=== PATIENT | female | born 1950 | race Caucasian/White ===

== ENCOUNTER → 2022-08-03 | Outpatient (REF) | payer MEDICARE ==
[2022-08-03 19:30] LABS: APPEARANCE, URINE MANUAL CLEAR (CLEAR); COLOR, URINE MANUAL YELLOW (YELLOW); GLUCOSE, URINE (UA) MANUAL 2+(250 MG/DL) mg/dL (NEGATIVE); PH,URINE MAN 5.5 UNITS (5.0 - 7.0); PROTEIN, URINE MANUAL NEGATIVE (NEGATIVE); SPECIFIC GRAVITY,URINE MANUAL 1.025 (1.002-1.035)
[2022-08-03 19:31] LABS: BILIRUBIN, URINE MANUAL NEGATIVE (NEGATIVE); BLOOD URINE MANUAL NEGATIVE (NEGATIVE); KETONE, URINE MANUAL NEGATIVE (NEGATIVE); NITRITE, URINE MANUAL NEGATIVE (NEGATIVE); UROBILINOGEN, URINE MANUAL NORMAL (NORMAL)
[2022-08-03 19:52] LABS: LEUKOCYTE ESTERASE, URINE MAN TRACE (NEGATIVE)
[2022-08-03 19:54] LABS: BACTERIA, URINE SMALL AMOUNT; HYALINE CAST, URINE NONE SEEN /lpf (0-1); MUCUS, URINE MOD AMOUNT (NEGATIVE); RBC, URINE 0-1 /hpf (0-3); SQUAMOUS EPITHELIAL CELL URINE LARGE AMOUNT /hpf (SMALL AMT); TRANSITIONAL EPI CELLS, URINE SMALL AMOUNT /hpf
== END ==
LOC: M SMT 17:02
PROVIDERS: ATTEND Nurse Practitioner Women's Health
DX: R32 Unspecified urinary incontinence (principal)

== ENCOUNTER → 2022-08-23 | Outpatient (REF) | payer MEDICARE ==
[2022-08-23 17:11] LABS: APPEARANCE, URINE MANUAL CLEAR (CLEAR); COLOR, URINE MANUAL YELLOW (YELLOW)
[2022-08-23 17:13] LABS: BILIRUBIN, URINE MANUAL NEGATIVE (NEGATIVE); BLOOD URINE MANUAL NEGATIVE (NEGATIVE); GLUCOSE, URINE (UA) MANUAL 4+(1000 MG/DL) mg/dL (NEGATIVE); KETONE, URINE MANUAL NEGATIVE (NEGATIVE); LEUKOCYTE ESTERASE, URINE MAN NEGATIVE (NEGATIVE); NITRITE, URINE MANUAL NEGATIVE (NEGATIVE); PH,URINE MAN 5.5 UNITS (5.0 - 7.0); PROTEIN, URINE MANUAL NEGATIVE (NEGATIVE); UROBILINOGEN, URINE MANUAL NORMAL (NORMAL)
== END ==
LOC: M SMT 16:49
PROVIDERS: ATTEND Urology
DX: R32 Unspecified urinary incontinence (principal)

== ENCOUNTER 2022-12-12 08:07 | Inpatient (IN) | payer MEDICARE, MEDICAID ==
[~2022-12-12] VITALS: Ht 152.4 cm; Wt 81.9 kg
[2022-12-12] MEDS ORDERED: LIDOCAINE 2% 5ML JELLY UROJET TOP ONE (08:50)
[2022-12-12 09:53] LABS: BASO # 0.1 10^3/uL (0.0-0.2); BASO % 0.6 % (0.0-1.0); EOS # 0.1 10^3/uL (0.0-0.5); EOS % 1.2 % (0.0-3.0); HEMATOCRIT 45.3 % (36.0-47.0); HEMOGLOBIN 14.9 g/dl (12.0-15.5); LYMPH # 2.5 10^3/uL (1.5-5.0); LYMPH % 23.4 % (24.0-44.0); MEAN CORPUSCULAR HEMOGLOBIN 28.1 pg (27.0-33.0); MEAN CORPUSCULAR HGB CONC 32.9 g/dl (32.0-36.5); MEAN CORPUSCULAR VOLUME 85.5 fl (80.0-96.0); MONO # 0.6 10^3/uL (0.0-0.8); MONO % 5.5 % (2.0-8.0); NEUTROPHILS # 7.5 10^3/uL (1.5-8.5); NEUTROPHILS % 68.9 % (36.0-66.0); PLATELET COUNT, AUTOMATED 212 10^3/uL (150-450); WHITE BLOOD COUNT 10.9 10^3/uL (4.0-10.0)
[2022-12-12 10:06] LABS: INR 0.92; PROTHROMBIN TIME 12.6 SECONDS (12.5-14.5)
[2022-12-12 10:07] LABS: PARTIAL THROMBOPLASTIN TIME 28.7 SECONDS (24.8-34.2)
[2022-12-12 10:25] LABS: RSV AMPLIFICATION NEGATIVE (NEGATIVE)
[2022-12-12 10:30] LABS: LIPASE 22 U/L (12-53)
[2022-12-12 10:32] LABS: ALBUMIN 3.6 G/DL (3.2-5.2); ALKALINE PHOSPHATASE 81 U/L (46-116); ALT/SGPT 23 U/L (7.0-40); AST/SGOT 21 U/L (<34); BILIRUBIN,DIRECT 0.2 MG/DL (<0.4); BILIRUBIN,TOTAL 0.5 MG/DL (0.3-1.2); BLOOD UREA NITROGEN 20 MG/DL (9-23); CALCIUM LEVEL 8.3 MG/DL (8.3-10.6); CARBON DIOXIDE LEVEL 27 MMOL/L (20-31); CHLORIDE LEVEL 105 MMOL/L (98-107); CK-MB VALUE MASS < 1.0 NG/ML (<3.6); CREATININE FOR GFR 0.67 MG/DL (0.55-1.30); GLOMERULAR FILTRATION RATE > 60.0 (>39); GLUCOSE, FASTING 266 MG/DL (74-106); POTASSIUM SERUM 4.3 MMOL/L (3.5-5.1); SODIUM LEVEL 142 MMOL/L (136-145); TOTAL PROTEIN 6.5 G/DL (5.7-8.2)
[2022-12-12 10:33] LABS: THYROID STIMULATING HORMONE 1.095 uIU/ML (0.55-4.78)
[2022-12-12 10:39] LABS: CPK CREATINE PHOSPHOKINASE 50 U/L (34-145)
[2022-12-12] MEDS ORDERED: levETIRAcetam INJection 1,000 MG in D5W 100 ML IV ONE (11:05)
[2022-12-12 11:26] LABS: CK-MB VALUE MASS < 1.0 NG/ML (<3.6)
[2022-12-12 11:33] LABS: CPK CREATINE PHOSPHOKINASE 51 U/L (34-145); MB/CK RELATIVE INDEX 1.96 (< OR =4)
[2022-12-12] MEDS ORDERED: ASPI81TA26 PO (11:40)
[2022-12-12] MEDS ORDERED: CARB25TA9 PO (11:40)
[2022-12-12] MEDS ORDERED: SIMV20TA22 PO (11:40)
[2022-12-12] MEDS ORDERED: LEXA1TAB2 PO (11:40)
[2022-12-12] MEDS ORDERED: LISI5TAB11 PO (11:40)
[2022-12-12] MEDS ORDERED: XALA0.007 OU (11:40)
[2022-12-12] MEDS ORDERED: PANT40TA29 PO (11:40)
[2022-12-12] MEDS ORDERED: TIMO0.2529 OU (11:40)
[2022-12-12] MEDS ORDERED: FARX1TAB3 PO (11:40)
[2022-12-12] MEDS ORDERED: FAMO40TA3 PO (11:40)
[2022-12-12] MEDS ORDERED: GABA-1171 PO (11:40)
[2022-12-12] MEDS ORDERED: BASA100I SC (11:40)
[2022-12-12] MEDS ORDERED: ERGO500029 PO (11:40)
[2022-12-12] MEDS ORDERED: HOME MED LIST COMPLETE! XX SCH (11:45)
[2022-12-12] MEDS ORDERED: GLUCOSE 4GM CHEW TABLET PO PRN (11:55)
[2022-12-12] MEDS ORDERED: FAMOTIDINE 20 MG TAB PO PRN (11:55)
[2022-12-12] MEDS ORDERED: DEXTROSE 50% 50ML SYRINGE IV PRN (11:55)
[2022-12-12] MEDS ORDERED: GLUCAGON INJ 1MG VIAL SC PRN (11:55)
[2022-12-12] MEDS ORDERED: KETOROLAC 30 MG/ML 1ML VIAL IV ONE (12:00)
[2022-12-12] MEDS: INSULIN LISPRO (NovoLOG) PER UNIT SC SCH ×3 (12:55→21:00)
[2022-12-12 13:45] VITALS: BP 121/61
[2022-12-12] MEDS: lisinopriL 5 MG TAB PO SCH (14:17)
[2022-12-12] MEDS: ASPIRIN 81MG ENTERIC TABLET PO SCH (14:17)
[2022-12-12] MEDS: ESCITALOPRAM OXALATE 10 MG TAB (LEXAPRO) PO SCH (14:17)
[2022-12-12] MEDS: PANTOPRAZOLE 40MG TAB (PROTONIX) PO SCH ×2 (14:18→22:06)
[2022-12-12 15:13] VITALS: BP_SYST 118; BP_SYST 121; BP_SYST 138; BP_DIAS 61; BP_DIAS 80
[2022-12-12] MEDS: GABAPENTIN 100 MG CAP PO SCH ×2 (16:10→22:03)
[2022-12-12 22:00] VITALS: BP 107/62
[2022-12-12] MEDS: levETIRAcetam 250MG TABLET (KEPPRA) PO SCH (22:03)
[2022-12-12] MEDS: LATANOPROST 0.005% OPHTH SOLN 2.5 ML OU SCH (22:03)
[2022-12-12] MEDS: SIMVASTATIN 20 MG TAB PO SCH (22:03)
[2022-12-12] MEDS: SINEMET 25-100 MG TAB PO SCH (22:04)
[2022-12-13 05:44] VITALS: BP_SYST 120; BP_SYST 122; BP_SYST 128; BP_DIAS 68; BP_DIAS 74; BP_DIAS 77
[2022-12-13 06:00] VITALS: BP 112/56
[2022-12-13 08:07] LABS: HEMATOCRIT 42.3 % (36.0-47.0); HEMOGLOBIN 13.7 g/dl (12.0-15.5); MEAN CORPUSCULAR HEMOGLOBIN 28.4 pg (27.0-33.0); MEAN CORPUSCULAR HGB CONC 32.4 g/dl (32.0-36.5); MEAN CORPUSCULAR VOLUME 87.8 fl (80.0-96.0); PLATELET COUNT, AUTOMATED 182 10^3/uL (150-450); RED BLOOD COUNT 4.82 10^6/uL (4.00-5.40); WHITE BLOOD COUNT 9.1 10^3/uL (4.0-10.0)
[2022-12-13 08:30] LABS: ALBUMIN 3.2 G/DL (3.2-5.2); ALKALINE PHOSPHATASE 67 U/L (46-116); ALT/SGPT 12 U/L (7.0-40); AST/SGOT 28 U/L (<34); BILIRUBIN,TOTAL 0.5 MG/DL (0.3-1.2); BLOOD UREA NITROGEN 32 MG/DL (9-23); CALCIUM LEVEL 8.8 MG/DL (8.3-10.6); CARBON DIOXIDE LEVEL 28 MMOL/L (20-31); CHLORIDE LEVEL 108 MMOL/L (98-107); CREATININE FOR GFR 0.81 MG/DL (0.55-1.30); GLOMERULAR FILTRATION RATE > 60.0 (>39); GLUCOSE, FASTING 213 MG/DL (74-106); POTASSIUM SERUM 4.4 MMOL/L (3.5-5.1); SODIUM LEVEL 142 MMOL/L (136-145); TOTAL PROTEIN 5.4 G/DL (5.7-8.2)
[2022-12-13] MEDS: ESCITALOPRAM OXALATE 10 MG TAB (LEXAPRO) PO SCH (09:27)
[2022-12-13] MEDS: LEVEMIR (INSULIN DETEMIR) 1 UNITS/0.01ML SC SCH (09:28)
[2022-12-13] MEDS: INSULIN LISPRO (NovoLOG) PER UNIT SC SCH ×4 (09:29→20:22)
[2022-12-13] MEDS: ASPIRIN 81MG ENTERIC TABLET PO SCH (09:30)
[2022-12-13] MEDS: levETIRAcetam 250MG TABLET (KEPPRA) PO SCH ×2 (09:30→20:19)
[2022-12-13] MEDS: PANTOPRAZOLE 40MG TAB (PROTONIX) PO SCH ×2 (09:30→20:19)
[2022-12-13] MEDS: lisinopriL 5 MG TAB PO SCH (09:30)
[2022-12-13] MEDS: GABAPENTIN 100 MG CAP PO SCH ×3 (09:31→20:19)
[2022-12-13] MEDS: TIMOLOL MALEATE 0.25% OPHTH SOLN 5 ML OU SCH (09:33)
[2022-12-13] MEDS ORDERED: KETOROLAC 30 MG/ML 1ML VIAL IV ONE (10:15)
[2022-12-13 14:00] VITALS: BP 110/52
[2022-12-13] MEDS: LATANOPROST 0.005% OPHTH SOLN 2.5 ML OU SCH (20:19)
[2022-12-13] MEDS: SINEMET 25-100 MG TAB PO SCH (20:19)
[2022-12-13] MEDS: SIMVASTATIN 20 MG TAB PO SCH (20:19)
[2022-12-13 22:00] VITALS: BP 95/45
[2022-12-14 05:36] LABS: HEMATOCRIT 41.1 % (36.0-47.0); HEMOGLOBIN 13.5 g/dl (12.0-15.5); MEAN CORPUSCULAR HEMOGLOBIN 28.6 pg (27.0-33.0); MEAN CORPUSCULAR HGB CONC 32.8 g/dl (32.0-36.5); MEAN CORPUSCULAR VOLUME 87.1 fl (80.0-96.0); PLATELET COUNT, AUTOMATED 199 10^3/uL (150-450); RED BLOOD COUNT 4.72 10^6/uL (4.00-5.40)
[2022-12-14 06:00] VITALS: BP 103/56
[2022-12-14 06:19] LABS: ALBUMIN 3.1 G/DL (3.2-5.2); ALKALINE PHOSPHATASE 66 U/L (46-116); ALT/SGPT 10 U/L (7.0-40); AST/SGOT 21 U/L (<34); BILIRUBIN,TOTAL 0.4 MG/DL (0.3-1.2); BLOOD UREA NITROGEN 35 MG/DL (9-23); CARBON DIOXIDE LEVEL 29 MMOL/L (20-31); CHLORIDE LEVEL 107 MMOL/L (98-107); CREATININE FOR GFR 0.83 MG/DL (0.55-1.30); GLOMERULAR FILTRATION RATE > 60.0 (>39); GLUCOSE, FASTING 156 MG/DL (74-106); POTASSIUM SERUM 4.6 MMOL/L (3.5-5.1); SODIUM LEVEL 141 MMOL/L (136-145); TOTAL PROTEIN 5.6 G/DL (5.7-8.2)
[2022-12-14 06:26] VITALS: BP_SYST 105; BP_SYST 110; BP_SYST 112; BP_DIAS 53; BP_DIAS 54; BP_DIAS 58
[2022-12-14 08:00] VITALS: BP 111/61
[2022-12-14] MEDS ORDERED: KEPP250T5 PO (09:33)
[2022-12-14] MEDS: INSULIN LISPRO (NovoLOG) PER UNIT SC SCH ×2 (10:31→13:29)
[2022-12-14] MEDS: ESCITALOPRAM OXALATE 10 MG TAB (LEXAPRO) PO SCH (10:32)
[2022-12-14] MEDS: LEVEMIR (INSULIN DETEMIR) 1 UNITS/0.01ML SC SCH (10:32)
[2022-12-14] MEDS: levETIRAcetam 250MG TABLET (KEPPRA) PO SCH (10:32)
[2022-12-14] MEDS: GABAPENTIN 100 MG CAP PO SCH ×2 (10:33→16:03)
[2022-12-14] MEDS: PANTOPRAZOLE 40MG TAB (PROTONIX) PO SCH (10:33)
[2022-12-14] MEDS: TIMOLOL MALEATE 0.25% OPHTH SOLN 5 ML OU SCH (10:34)
[2022-12-14 12:06] VITALS: BP 111/61
[2022-12-14] MEDS: lisinopriL 5 MG TAB PO SCH (12:06)
[2022-12-14] MEDS: ASPIRIN 81MG ENTERIC TABLET PO SCH (12:06)
[2022-12-14 14:00] VITALS: BP_SYST 108; BP_SYST 121; BP_DIAS 47; BP_DIAS 55
== END 2022-12-14 17:04 | disposition home health service (06) | DRG 101 ==
LOC: M ED 08:07 → M ED INP 11:55 → ENRESERV 12:22 → M MSPAV 13:38
PROVIDERS: ADMIT Internal Medicine; ATTEND General Practice
PROC: B246ZZZ Ultrasonography of Right and Left Heart (ICD-10-PCS; principal; 2022-12-13)
DX: G40.909 Epilepsy, unspecified, not intractable, without status epilepticus (principal); F32.A Depression, unspecified; E11.9 Type 2 diabetes mellitus without complications; H40.9 Unspecified glaucoma; M54.50 Low back pain, unspecified; I10 Essential (primary) hypertension; G25.81 Restless legs syndrome; R32 Unspecified urinary incontinence; G89.29 Other chronic pain; M47.812 Spondylosis without myelopathy or radiculopathy, cervical region; M48.02 Spinal stenosis, cervical region; M48.061 Spinal stenosis, lumbar region without neurogenic claudication; Z79.82 Long term (current) use of aspirin; Z79.4 Long term (current) use of insulin; Z90.49 Acquired absence of other specified parts of digestive tract; Z79.899 Other long term (current) drug therapy; Z88.2 Allergy status to sulfonamides; Z88.5 Allergy status to narcotic agent; Z88.8 Allergy status to other drugs, medicaments and biological substances; Z91.048 Other nonmedicinal substance allergy status; Z88.6 Allergy status to analgesic agent

== ENCOUNTER → 2023-05-04 | Outpatient (REF) | payer MEDICARE ==
[~2023-05-04] MED LIST: ASPI81TA26 PO; BASA100I SC; CARB25TA9 PO; ERGO500029 PO; FAMO40TA3 PO; FARX1TAB3 PO; GABA-1171 PO; KEPP250T5 PO; LEXA1TAB2 PO; LISI5TAB11 PO; PANT40TA29 PO; SIMV20TA22 PO; TIMO0.2529 OU; XALA0.007 OU
[2023-05-04 17:21] LABS: APPEARANCE, URINE CLEAR (CLEAR); BACTERIA, URINE AUTO NEGATIVE (NEGATIVE); BILIRUBIN, URINE AUTO NEGATIVE (NEGATIVE); BLOOD, URINE BLOOD NEGATIVE (NEGATIVE); COLOR, URINE YELLOW (YELLOW); GLUCOSE, URINE (UA) AUTO 3+ mg/dL (NEGATIVE); KETONE, URINE AUTO NEGATIVE (NEGATIVE); LEUKOCYTE ESTERASE, URINE AUTO NEGATIVE (NEGATIVE); NITRITE, URINE AUTO NEGATIVE (NEGATIVE); PROTEIN, URINE AUTO NEGATIVE (NEGATIVE); RBC, URINE AUTO 0 /HPF (0-3); SPECIFIC GRAVITY URINE AUTO 1.015 (1.002-1.035); SQUAMOUS EPITHELIAL CELL UR AU 0 /HPF (0-6); UROBILINOGEN, URINE AUTO 0.2 mg/dL (0.0-2.0); WBC, URINE AUTO 1 /HPF (0-3)
== END ==
LOC: M SMT 16:49
PROVIDERS: ATTEND Urology
DX: N39.41 Urge incontinence (principal)

== ENCOUNTER → 2024-11-12 | Outpatient (REF) | payer MEDICARE, MEDICAID ==
[2024-11-12 18:36] LABS: APPEARANCE, URINE CLEAR (CLEAR); BACTERIA, URINE AUTO NEGATIVE (NEGATIVE); BILIRUBIN, URINE AUTO NEGATIVE (NEGATIVE); BLOOD, URINE BLOOD NEGATIVE (NEGATIVE); COLOR, URINE YELLOW (YELLOW); GLUCOSE, URINE (UA) AUTO 3+ mg/dL (NEGATIVE); KETONE, URINE AUTO NEGATIVE (NEGATIVE); LEUKOCYTE ESTERASE, URINE AUTO NEGATIVE (NEGATIVE); NITRITE, URINE AUTO NEGATIVE (NEGATIVE); PROTEIN, URINE AUTO NEGATIVE (NEGATIVE); RBC, URINE AUTO 1 /HPF (0-3); SPECIFIC GRAVITY URINE AUTO 1.028 (1.002-1.035); SQUAMOUS EPITHELIAL CELL UR AU 0 /HPF (0-6); WBC, URINE AUTO 1 /HPF (0-3)
== END ==
LOC: M SMT 16:58
PROVIDERS: ATTEND Urology
DX: R39.15 Urgency of urination (principal)

== ENCOUNTER → 2025-01-21 | Outpatient (CLI) | payer MEDICARE, MEDICAID | LOC: M RAD 11:12 | PROVIDERS: ATTEND Internal Medicine | DX: C50.312 Malignant neoplasm of lower-inner quadrant of left female breast (principal) ==

== ENCOUNTER 2025-01-26 18:23 | Emergency (ER) | payer MEDICARE, MEDICAID ==
[~2025-01-26] VITALS: Ht 152.4 cm; Wt 73.1 kg
[~2025-01-26 18:23] MED LIST changes: +CITA20TA7; +DEXL30CA6; +DONE10TA90; +ESTR62CR; +GABA-1172; +INSU100I24; +LISI10TA22; +MUPI2OI; +MYRB50TA; +NYST-13; +PRUC2TAB; +SOLI10TA; +TRAZ-252; +VITA-297 PO
[2025-01-26] MEDS ORDERED: INSU1CAR5 (18:36)
[2025-01-26 19:10] LABS: BASO # 0.1 10^3/uL (0.0-0.2); BASO % 0.5 % (0.0-1.0); EOS # 0.3 10^3/uL (0.0-0.5); EOS % 2.4 % (0.0-3.0); HEMATOCRIT 45.3 % (36.0-47.0); LYMPH # 3.6 10^3/uL (1.5-5.0); LYMPH % 28.1 % (24.0-44.0); MEAN CORPUSCULAR HEMOGLOBIN 28.4 pg (27.0-33.0); MEAN CORPUSCULAR HGB CONC 33.1 g/dl (32.0-36.5); MEAN CORPUSCULAR VOLUME 85.8 fl (80.0-96.0); MONO # 0.9 10^3/uL (0.0-0.8); MONO % 6.7 % (2.0-8.0); NEUTROPHILS % 62.1 % (36.0-66.0); PLATELET COUNT, AUTOMATED 186 10^3/uL (150-450); RED BLOOD COUNT 5.28 10^6/uL (4.00-5.40); WHITE BLOOD COUNT 12.9 10^3/uL (4.0-10.0)
[2025-01-26 19:10] LABS: KETONE, URINE AUTO RFX NEGATIVE (NEGATIVE); NITRITE, URINE AUTO RFX NEGATIVE (NEGATIVE); RBC, URINE AUTO RFX TNTC /HPF (0-3); SQUAM EPITHELIAL CELL UR AURFX 0 /HPF (0-6)
[2025-01-26 19:17] LABS: LEUKOCYTE ESTERASE UR AUTO RFX 3+ (NEGATIVE); WBC, URINE AUTO RFX TNTC /HPF (0-3)
[2025-01-26 19:40] LABS: LIPASE 21 U/L (12-53)
[2025-01-26 19:42] LABS: ALBUMIN 3.9 G/DL (3.2-5.2); ALKALINE PHOSPHATASE 80 U/L (35-104); ALT/SGPT 17 U/L (7.0-40); AST/SGOT 13 U/L (<34); BILIRUBIN,DIRECT < 0.1 MG/DL (<0.4); BILIRUBIN,TOTAL 0.2 MG/DL (0.3-1.2); BLOOD UREA NITROGEN 22 MG/DL (9-23); CALCIUM LEVEL 9.2 MG/DL (8.3-10.6); CARBON DIOXIDE LEVEL 30 MMOL/L (20-31); CHLORIDE LEVEL 105 MMOL/L (98-107); CREATININE FOR GFR 0.82 MG/DL (0.55-1.30); GLOMERULAR FILTRATION RATE > 60.0 (>39); GLUCOSE, FASTING 109 MG/DL (74-106); POTASSIUM SERUM 4.1 MMOL/L (3.5-5.1); SODIUM LEVEL 144 MMOL/L (136-145); TOTAL PROTEIN 6.6 G/DL (5.7-8.2)
[2025-01-26] MEDS: ACETAMINOPHEN *IV* 1,000 MG in IV 1 EA IV ONE (19:58)
[2025-01-26] MEDS: NS (Normal Saline) 0.9% 1,000 ML IV ONE (19:59)
[2025-01-26] MEDS: cefTRIAXone SOD 1 GM in DEXTROSE 5% (D5W) ADV/MINI-BAG 50 ML IV ONE (20:25)
[2025-01-26 22:01] VITALS: BP 106/53; TEMP 97.7; O2SAT 97
[2025-01-26] MEDS ORDERED: CEFD300CAP PO (22:23)
[2025-01-26] MEDS ORDERED: PYRI1TAB5 PO (22:23)
[2025-01-26] MEDS: PHENAZOPYRIDINE 100 MG TAB PO ONE (22:25)
[2025-01-27] MEDS ORDERED: NITR100C3 PO (09:36)
== END 2025-01-26 22:54 | disposition home or self-care (01) ==
LOC: M ED 18:23
DX: N30.01 Acute cystitis with hematuria (principal); N63.20 Unspecified lump in the left breast, unspecified quadrant; R91.1 Solitary pulmonary nodule; Z90.49 Acquired absence of other specified parts of digestive tract; N28.1 Cyst of kidney, acquired; Z90.710 Acquired absence of both cervix and uterus; K42.9 Umbilical hernia without obstruction or gangrene; K86.89 Other specified diseases of pancreas; K57.30 Diverticulosis of large intestine without perforation or abscess without bleeding; Z88.2 Allergy status to sulfonamides; Z88.5 Allergy status to narcotic agent; Z88.8 Allergy status to other drugs, medicaments and biological substances; Z88.6 Allergy status to analgesic agent; Z91.048 Other nonmedicinal substance allergy status; Z79.899 Other long term (current) drug therapy
CPT/HCPCS: 74176; 80048; 80076; 81001; 83605; 83690; 85025; 87040; 87088; 87186; 93041; 96365; 96368; 99284; J0131; J0696

== ENCOUNTER 2025-02-10 13:17 | Emergency (ER) | payer MEDICARE, MEDICAID ==
[~2025-02-10] VITALS: Ht 162.6 cm; Wt 74.0 kg
[~2025-02-10 13:17] MED LIST changes: +CEFD300CAP PO; +INSU1CAR5; +NITR100C3 PO; +PYRI1TAB5 PO
[2025-02-10 13:22] VITALS: TEMP 98.3
[2025-02-10 14:17] LABS: BASO # 0.1 10^3/uL (0.0-0.2); BASO % 0.6 % (0.0-1.0); EOS # 0.2 10^3/uL (0.0-0.5); HEMATOCRIT 43.6 % (36.0-47.0); HEMOGLOBIN 14.5 g/dl (12.0-15.5); LYMPH # 2.7 10^3/uL (1.5-5.0); LYMPH % 25.7 % (24.0-44.0); MEAN CORPUSCULAR HEMOGLOBIN 28.7 pg (27.0-33.0); MEAN CORPUSCULAR HGB CONC 33.3 g/dl (32.0-36.5); MEAN CORPUSCULAR VOLUME 86.3 fl (80.0-96.0); MONO # 0.6 10^3/uL (0.0-0.8); MONO % 5.5 % (2.0-8.0); NEUTROPHILS % 65.8 % (36.0-66.0); PLATELET COUNT, AUTOMATED 192 10^3/uL (150-450); RED BLOOD COUNT 5.05 10^6/uL (4.00-5.40); WHITE BLOOD COUNT 10.7 10^3/uL (4.0-10.0)
[2025-02-10 14:34] LABS: INR 0.92; PARTIAL THROMBOPLASTIN TIME 28.8 SECONDS (24.8-34.2); PROTHROMBIN TIME 12.7 SECONDS (12.5-14.5)
[2025-02-10] MEDS ORDERED: ISOVUE-370 76% 100ML VIAL As Ordered ONE (15:18)
[2025-02-10] MEDS: diphenhydrAMINE 50MG/ML VIAL IV ONE (15:21)
[2025-02-10] MEDS: METOCLOPRAMIDE INJ 10MG/2ML VIAL IV ONE (15:51)
[2025-02-10] MEDS: KETOROLAC 30 MG/ML 1ML VIAL IV ONE (15:51)
[2025-02-10 18:41] VITALS: BP 99/57; O2SAT 96
== END 2025-02-10 19:05 | disposition home or self-care (01) ==
LOC: M ED 13:17
DX: S06.0X0A Concussion without loss of consciousness, initial encounter (principal); R51.9 Headache, unspecified; R20.2 Paresthesia of skin; Y92.9 Unspecified place or not applicable; Y93.9 Activity, unspecified; Y99.9 Unspecified external cause status; E11.9 Type 2 diabetes mellitus without complications; I10 Essential (primary) hypertension; F41.9 Anxiety disorder, unspecified; F32.A Depression, unspecified; Z88.1 Allergy status to other antibiotic agents; Z88.2 Allergy status to sulfonamides; Z88.6 Allergy status to analgesic agent; Z88.8 Allergy status to other drugs, medicaments and biological substances; Z79.1 Long term (current) use of non-steroidal anti-inflammatories (NSAID); Z79.4 Long term (current) use of insulin; Z79.899 Other long term (current) drug therapy
CPT/HCPCS: 70450; 70496; 70498; 70551; 71045; 80047; 85025; 85610; 85730; 86850; 86900; 86901; 93005; 93041; 94760; 96374; 96375; 99285; J1200; J1885; J2765; Q9967

== ENCOUNTER → 2025-02-13 | Outpatient (REF) | payer MEDICARE, MEDICAID ==
[2025-02-13 15:37] LABS: APPEARANCE, URINE CLEAR (CLEAR); BACTERIA, URINE AUTO NEGATIVE (NEGATIVE); BILIRUBIN, URINE AUTO NEGATIVE (NEGATIVE); BLOOD, URINE BLOOD NEGATIVE (NEGATIVE); COLOR, URINE YELLOW (YELLOW); GLUCOSE, URINE (UA) AUTO 3+ mg/dL (NEGATIVE); KETONE, URINE AUTO NEGATIVE (NEGATIVE); LEUKOCYTE ESTERASE, URINE AUTO NEGATIVE (NEGATIVE); NITRITE, URINE AUTO NEGATIVE (NEGATIVE); PROTEIN, URINE AUTO NEGATIVE (NEGATIVE); RBC, URINE AUTO 1 /HPF (0-3); SPECIFIC GRAVITY URINE AUTO 1.018 (1.002-1.035); SQUAMOUS EPITHELIAL CELL UR AU 1 /HPF (0-6); UROBILINOGEN, URINE AUTO 0.2 mg/dL (0.0-2.0); WBC, URINE AUTO 1 /HPF (0-3)
== END ==
LOC: M SMT 15:08
PROVIDERS: ATTEND Urology
DX: Z87.440 Personal history of urinary (tract) infections (principal)

== ENCOUNTER → 2025-02-25 | Outpatient (CLI) | payer MEDICARE, MEDICAID ==
[~2025-02-25] MED LIST changes: +BREAST PROSTHESIS L XX; +MASTECTOMY BRA BILAT XX
[2025-02-25 11:06] LABS: THYROID PEROXIDASE ANTIBODY < 28.0 U/ML (<60.0); THYROID STIMULATING HORMONE 0.638 uIU/ML (0.55-4.78); TOTAL T3 109.2 NG/DL (60.0-181.0)
== END ==
LOC: M LAB 09:09
PROVIDERS: ATTEND Otolaryngology
DX: E06.9 Thyroiditis, unspecified (principal)

== ENCOUNTER → 2025-02-27 | Outpatient (CLI) | payer MEDICARE, MEDICAID | LOC: M WHC 10:26 | PROVIDERS: ATTEND Nurse Practitioner Women's Health | DX: N64.4 Mastodynia (principal); Z85.3 Personal history of malignant neoplasm of breast | CPT/HCPCS: 76642; 77065; G0279 ==

== ENCOUNTER → 2025-03-07 | Outpatient (REF) | payer MEDICARE, MEDICAID ==
[~2025-03-07] MED LIST changes: -NYST-13; +NYST0.1C
[2025-03-07 18:17] LABS: BASO # 0.1 10^3/uL (0.0-0.2); BASO % 0.4 % (0.0-1.0); EOS # 0.1 10^3/uL (0.0-0.5); EOS % 1.2 % (0.0-3.0); HEMATOCRIT 44.4 % (36.0-47.0); HEMOGLOBIN 14.5 g/dl (12.0-15.5); LYMPH # 3.2 10^3/uL (1.5-5.0); LYMPH % 27.5 % (24.0-44.0); MEAN CORPUSCULAR HEMOGLOBIN 28.5 pg (27.0-33.0); MEAN CORPUSCULAR HGB CONC 32.7 g/dl (32.0-36.5); MEAN CORPUSCULAR VOLUME 87.2 fl (80.0-96.0); MONO # 0.9 10^3/uL (0.0-0.8); MONO % 7.9 % (2.0-8.0); NEUTROPHILS # 7.2 10^3/uL (1.5-8.5); NEUTROPHILS % 62.6 % (36.0-66.0); PLATELET COUNT, AUTOMATED 178 10^3/uL (150-450); RED BLOOD COUNT 5.09 10^6/uL (4.00-5.40); WHITE BLOOD COUNT 11.6 10^3/uL (4.0-10.0)
[2025-03-07 18:41] LABS: ALBUMIN 3.7 G/DL (3.2-5.2); ALKALINE PHOSPHATASE 71 U/L (35-104); ALT/SGPT < 9 U/L (7.0-40); AST/SGOT 14 U/L (<34); BILIRUBIN,TOTAL 0.8 MG/DL (0.3-1.2); BLOOD UREA NITROGEN 23 MG/DL (9-23); CALCIUM LEVEL 9.3 MG/DL (8.3-10.6); CARBON DIOXIDE LEVEL 31 MMOL/L (20-31); CHLORIDE LEVEL 103 MMOL/L (98-107); CHOLESTEROL LEVEL 158 MG/DL (<200); CHOLESTEROL RISK RATIO 2.74 (<5); CREATININE FOR GFR 0.79 MG/DL (0.55-1.30); GLOMERULAR FILTRATION RATE 79.4 (>39); GLUCOSE, FASTING 128 MG/DL (74-106); HDL CHOLESTEROL 57.5 MG/DL (>40); LDL CHOLESTEROL 78.1 MG/DL (<100); NON-HDL-C 100.5 MG/DL; POTASSIUM SERUM 4.8 MMOL/L (3.5-5.1); SODIUM LEVEL 141 MMOL/L (136-145); TOTAL PROTEIN 6.6 G/DL (5.7-8.2); TRIGLYCERIDES LEVEL 112 MG/DL (<150)
[2025-03-07 18:46] LABS: THYROID STIMULATING HORMONE 0.701 uIU/ML (0.55-4.78)
[2025-03-07 19:04] LABS: HEMOGLOBIN A1c 6.4 % (4.0-6.0)
== END ==
LOC: M LAB REF 16:53
PROVIDERS: ATTEND Nurse Practitioner Family
DX: E66.9 Obesity, unspecified (principal); R53.83 Other fatigue

== ENCOUNTER → 2025-03-12 | Outpatient (CLI) | payer MEDICARE, MEDICAID | LOC: M RAD 12:38 | PROVIDERS: ATTEND Otolaryngology | DX: E04.1 Nontoxic single thyroid nodule (principal) ==

== ENCOUNTER → 2025-03-19 | Outpatient (REF) | payer MEDICARE, MEDICAID ==
[2025-03-19 14:00] LABS: APPEARANCE, URINE HAZY (CLEAR); BACTERIA, URINE AUTO NEGATIVE (NEGATIVE); BILIRUBIN, URINE AUTO NEGATIVE (NEGATIVE); BLOOD, URINE BLOOD NEGATIVE (NEGATIVE); COLOR, URINE YELLOW (YELLOW); GLUCOSE, URINE (UA) AUTO NEGATIVE (NEGATIVE); KETONE, URINE AUTO NEGATIVE (NEGATIVE); LEUKOCYTE ESTERASE, URINE AUTO 1+ (NEGATIVE); MUCUS, URINE SMALL (NEGATIVE); NITRITE, URINE AUTO NEGATIVE (NEGATIVE); PROTEIN, URINE AUTO NEGATIVE (NEGATIVE); RBC, URINE AUTO 1 /HPF (0-3); SPECIFIC GRAVITY URINE AUTO 1.019 (1.002-1.035); SQUAMOUS EPITHELIAL CELL UR AU 2 /HPF (0-6); UROBILINOGEN, URINE AUTO 0.2 mg/dL (0.0-2.0); WBC, URINE AUTO 2 /HPF (0-3)
== END ==
LOC: M SMT 12:47
PROVIDERS: ATTEND Urology
DX: R32 Unspecified urinary incontinence (principal)

== ENCOUNTER → 2025-03-26 | Outpatient (REF) | payer MEDICARE, MEDICAID ==
[2025-03-27 14:06] LABS: APPEARANCE, URINE CLEAR (CLEAR); BACTERIA, URINE AUTO NEGATIVE (NEGATIVE); BILIRUBIN, URINE AUTO NEGATIVE (NEGATIVE); BLOOD, URINE BLOOD NEGATIVE (NEGATIVE); COLOR, URINE YELLOW (YELLOW); GLUCOSE, URINE (UA) AUTO 3+ mg/dL (NEGATIVE); KETONE, URINE AUTO NEGATIVE (NEGATIVE); LEUKOCYTE ESTERASE, URINE AUTO NEGATIVE (NEGATIVE); NITRITE, URINE AUTO NEGATIVE (NEGATIVE); PROTEIN, URINE AUTO NEGATIVE (NEGATIVE); RBC, URINE AUTO 1 /HPF (0-3); SPECIFIC GRAVITY URINE AUTO 1.028 (1.002-1.035); SQUAMOUS EPITHELIAL CELL UR AU 0 /HPF (0-6); UROBILINOGEN, URINE AUTO 0.2 mg/dL (0.0-2.0); WBC, URINE AUTO 1 /HPF (0-3)
== END ==
LOC: M LAB REF 12:21
PROVIDERS: ATTEND Nurse Practitioner Family
DX: R10.2 Pelvic and perineal pain (principal)

== ENCOUNTER → 2025-03-29 | Outpatient (CLI) | payer MEDICARE, MEDICAID ==
[~2025-03-29] MED LIST changes: +ISOVUE-370 76% 100ML VIAL As Ordered ONE
== END ==
LOC: M RAD 07:28
PROVIDERS: ATTEND Otolaryngology
DX: R07.0 Pain in throat (principal)
CPT/HCPCS: 70491; Q9967

== ENCOUNTER 2025-06-03 05:58 | Day surgery (SDC) | payer MEDICARE, MEDICAID ==
[~2025-06-03] VITALS: Ht 152.4 cm; Wt 73.7 kg
[~2025-06-03 05:58] MED LIST changes: -CITA20TA7; +CITA20TA7 PO; -DEXL30CA6; +DEXL30CA6 PO; -DONE10TA90; +DONE10TA90 PO; -GABA-1172; +GABA-1172 PO; +INSU100V6 SQ; -ISOVUE-370 76% 100ML VIAL As Ordered ONE; -LISI10TA22; +LISI10TA22 PO; -PRUC2TAB; +PRUC2TAB PO; -TRAZ-252; +TRAZ-252 PO
[2025-06-03] MEDS: LR 1,000 ML IV SCH (06:30)
[2025-06-03] MEDS ORDERED: dexAMETHasone 4 MG/ML 1 ML VIAL As Ordered ONE (07:09)
[2025-06-03] MEDS ORDERED: ONDANSETRON 4MG 2ML VIAL As Ordered ONE (07:09)
[2025-06-03] MEDS ORDERED: LIDOCAINE 2% 100 MG/5 ML SDV (FOR ANES.) As Ordered ONE (07:09)
[2025-06-03] MEDS ORDERED: MIDAZOLAM INJ 2 MG/2 ML VIAL As Ordered ONE (07:15)
[2025-06-03] MEDS ORDERED: DEXTROSE 50% 50 ML SYRINGE IV PRN (07:20)
[2025-06-03] MEDS ORDERED: GLUCAGON INJ 1 MG VIAL SC PRN (07:20)
[2025-06-03] MEDS ORDERED: GLUCOSE 4 GM CHEW PO PRN (07:20)
[2025-06-03] MEDS: INSULIN LISPRO (NovoLOG) PER UNIT SC ONE (07:20)
[2025-06-03] MEDS: CLINDAMYCIN 900 MG in IV 1 EA IV ONE (07:25)
[2025-06-03] MEDS: INSULIN LISPRO (NovoLOG) PER UNIT SC PRN (07:31)
[2025-06-03] MEDS ORDERED: ACETAMINOPHEN 1000MG/100ML IV BAG As Ordered ONE (07:41)
[2025-06-03] MEDS ORDERED: dexmedeTOMIDine (4 MCG/ML) 200 MCG/50 ML BTL As Ordered ONE (07:44)
[2025-06-03] MEDS: LIDOCAINE 1% SDV 30 ML VIAL As Ordered ONE (07:46)
[2025-06-03] MEDS: LIDOCAINE 1% MDV 20 ML VIAL As Ordered ONE (08:05)
[2025-06-03 08:11] VITALS: BP 138/62
[2025-06-03 08:37] VITALS: TEMP 98.5; O2SAT 98
[2025-06-03] MEDS ORDERED: PHENYLephrine 500MCG 5ML (100MCG/ML) SYRINGE As Ordered ONE (11:53)
[2025-06-07] MEDS ORDERED: LEVE500T5 PO (07:54)
[2025-06-07] MEDS ORDERED: MYRB50TA PO (07:54)
[2025-06-07] MEDS ORDERED: ECOT81TA5 PO (13:52)
== END 2025-06-03 08:49 | disposition home or self-care (01) ==
LOC: M SDC 05:58
PROVIDERS: ATTEND Urology
DX: N39.41 Urge incontinence (principal); I10 Essential (primary) hypertension; E11.43 Type 2 diabetes mellitus with diabetic autonomic (poly)neuropathy; G40.909 Epilepsy, unspecified, not intractable, without status epilepticus; E04.1 Nontoxic single thyroid nodule; Z90.710 Acquired absence of both cervix and uterus; Z98.51 Tubal ligation status; K31.84 Gastroparesis; Z88.2 Allergy status to sulfonamides; Z91.048 Other nonmedicinal substance allergy status; Z79.82 Long term (current) use of aspirin; Z79.84 Long term (current) use of oral hypoglycemic drugs; Z85.3 Personal history of malignant neoplasm of breast; G47.30 Sleep apnea, unspecified; R91.8 Other nonspecific abnormal finding of lung field; Z88.5 Allergy status to narcotic agent; Z88.8 Allergy status to other drugs, medicaments and biological substances; Z88.6 Allergy status to analgesic agent
CPT/HCPCS: 64561; 76000; C1778; C1897; J0131; J0737; J1815; J2250; J2371; J2405; J3010

== ENCOUNTER 2025-06-09 13:35 | Emergency (ER) | payer MEDICARE, MEDICAID ==
[~2025-06-09] VITALS: Ht 152.4 cm; Wt 72.6 kg
[~2025-06-09 13:35] MED LIST changes: +ECOT81TA5 PO; +LEVE500T5 PO; +MYRB50TA PO
[2025-06-09] MEDS: ACETAMINOPHEN *IV* 1,000 MG in IV 1 EA IV ONE (14:33)
[2025-06-09 15:01] LABS: ALT/SGPT < 9 U/L (7.0-40); AST/SGOT 18 U/L (<34); BASO # 0.1 10^3/uL (0.0-0.2); BASO % 0.4 % (0.0-1.0); CALCIUM LEVEL 9.1 MG/DL (8.3-10.6); CARBON DIOXIDE LEVEL 26 MMOL/L (20-31); CHLORIDE LEVEL 105 MMOL/L (98-107); CREATININE FOR GFR 0.67 MG/DL (0.55-1.30); EOS # 0.1 10^3/uL (0.0-0.5); EOS % 0.8 % (0.0-3.0); GLOMERULAR FILTRATION RATE > 90.0 (>39); LYMPH # 2.0 10^3/uL (1.5-5.0); LYMPH % 17.1 % (24.0-44.0); MONO # 0.9 10^3/uL (0.0-0.8); MONO % 7.5 % (2.0-8.0); NEUTROPHILS # 8.7 10^3/uL (1.5-8.5); NEUTROPHILS % 73.9 % (36.0-66.0); PLATELET COUNT, AUTOMATED 191 10^3/uL (150-450); POTASSIUM SERUM 4.5 MMOL/L (3.5-5.1); SODIUM LEVEL 145 MMOL/L (136-145)
[2025-06-09] MEDS ORDERED: ISOVUE-370 76% 100 ML VIAL As Ordered ONE (15:07)
[2025-06-09 16:16] LABS: ERYTHROCYTE SEDIMENTATION RATE 23 mm/hr (0-30)
[2025-06-09] MEDS: IPRATROPIUM 0.5 MG/ALBUTEROL 2.5 MG INH SOL UD 3 ML NEB ONE (17:15)
[2025-06-09 18:01] VITALS: BP 112/57; TEMP 98.4; O2SAT 96
== END 2025-06-09 18:09 | disposition home or self-care (01) ==
LOC: M ED 13:35
DX: R06.00 Dyspnea, unspecified (principal); R00.0 Tachycardia, unspecified; E11.9 Type 2 diabetes mellitus without complications; I10 Essential (primary) hypertension; E78.5 Hyperlipidemia, unspecified; G40.909 Epilepsy, unspecified, not intractable, without status epilepticus; C50.919 Malignant neoplasm of unspecified site of unspecified female breast; Z88.1 Allergy status to other antibiotic agents; Z88.2 Allergy status to sulfonamides; Z88.6 Allergy status to analgesic agent; Z88.8 Allergy status to other drugs, medicaments and biological substances; Z79.1 Long term (current) use of non-steroidal anti-inflammatories (NSAID); Z79.899 Other long term (current) drug therapy
CPT/HCPCS: 71045; 71275; 80048; 80076; 84484; 85025; 85652; 87486; 87581; 87633; 87798; 93005; 93041; 94640; 94760; 96365; 99285; J0131; Q9967

== ENCOUNTER → 2025-06-13 | Outpatient (REF) | payer MEDICARE ==
[~2025-06-13] MED LIST changes: +CLIN150C17 PO; +HYDR-3713 PO
== END ==
LOC: M LAB REF 13:05
PROVIDERS: ATTEND Family Medicine Addiction Medicine
DX: R19.5 Other fecal abnormalities (principal)

== ENCOUNTER 2025-06-18 06:57 | Day surgery (SDC) | payer MEDICARE, MEDICAID ==
[~2025-06-18] VITALS: Ht 152.4 cm; Wt 73.1 kg
[~2025-06-18 06:57] MED LIST changes: -CLIN150C17 PO; -HYDR-3713 PO
[2025-06-18] MEDS ORDERED: dexAMETHasone 4 MG/ML 1 ML VIAL As Ordered ONE (07:53)
[2025-06-18] MEDS ORDERED: LIDOCAINE 2% 100 MG/5 ML SDV (FOR ANES.) As Ordered ONE (07:53)
[2025-06-18] MEDS ORDERED: ONDANSETRON 4MG 2ML VIAL As Ordered ONE (07:53)
[2025-06-18] MEDS ORDERED: LR 1,000 ML IV SCH (08:25)
[2025-06-18] MEDS ORDERED: MIDAZOLAM INJ 2 MG/2 ML VIAL As Ordered ONE (08:57)
[2025-06-18] MEDS: INSULIN LISPRO (NovoLOG) PER UNIT SC PRN (09:10)
[2025-06-18] MEDS: ceFAZolin SOD 2 GM IV ONCE IV ONE (09:21)
[2025-06-18] MEDS ORDERED: ACETAMINOPHEN 1000MG/100ML IV BAG As Ordered ONE (09:23)
[2025-06-18] MEDS: LIDOCAINE 1% SDV 30 ML VIAL As Ordered ONE (09:59)
[2025-06-18] MEDS ORDERED: HYDR-3713 PO (10:15)
[2025-06-18] MEDS ORDERED: CLIN150C17 PO (10:15)
[2025-06-18] MEDS: ONDANSETRON 4MG 2ML VIAL IV PRN (10:35)
[2025-06-18 11:00] VITALS: BP 130/60; TEMP 97.4; O2SAT 96
[2025-06-18] MEDS: ACETAMINOPHEN 500 MG TAB PO ONE (12:38)
== END 2025-06-18 12:45 | disposition home or self-care (01) ==
LOC: M SDC 06:57
PROVIDERS: ATTEND Urology
DX: N39.41 Urge incontinence (principal); E11.40 Type 2 diabetes mellitus with diabetic neuropathy, unspecified; I10 Essential (primary) hypertension; E78.00 Pure hypercholesterolemia, unspecified; K21.9 Gastro-esophageal reflux disease without esophagitis; Z79.899 Other long term (current) drug therapy; Z88.8 Allergy status to other drugs, medicaments and biological substances; Z88.5 Allergy status to narcotic agent; Z88.2 Allergy status to sulfonamides; Z79.82 Long term (current) use of aspirin; G40.909 Epilepsy, unspecified, not intractable, without status epilepticus; Z85.3 Personal history of malignant neoplasm of breast; Z92.3 Personal history of irradiation; Z92.21 Personal history of antineoplastic chemotherapy; Z91.048 Other nonmedicinal substance allergy status; R91.8 Other nonspecific abnormal finding of lung field; Z90.710 Acquired absence of both cervix and uterus
CPT/HCPCS: 64581; 64590; 76000; C1778; C1787; C1894; J0690; J1815; J2250; J2405; J3010

== ENCOUNTER 2025-07-04 00:43 | Emergency (ER) | payer MEDICARE ==
[~2025-07-04] VITALS: Ht 152.4 cm; Wt 72.7 kg
[~2025-07-04 00:43] MED LIST changes: +CLIN150C17 PO; +HYDR-3713 PO
[2025-07-04 00:52] VITALS: TEMP 97.4
[2025-07-04 02:01] VITALS: BP 148/68
[2025-07-04] MEDS: FLEET ENEMA PR STA (02:01)
[2025-07-04 02:02] LABS: BASO # 0.1 10^3/uL (0.0-0.2); BASO % 0.7 % (0.0-1.0); EOS # 0.3 10^3/uL (0.0-0.5); EOS % 3.0 % (0.0-3.0); LYMPH # 3.4 10^3/uL (1.5-5.0); LYMPH % 41.3 % (24.0-44.0); MONO # 0.8 10^3/uL (0.0-0.8); MONO % 9.0 % (2.0-8.0); NEUTROPHILS # 3.8 10^3/uL (1.5-8.5); NEUTROPHILS % 45.9 % (36.0-66.0); PLATELET COUNT, AUTOMATED 180 10^3/uL (150-450)
[2025-07-04 02:19] LABS: INR 0.9
[2025-07-04 02:30] LABS: ALT/SGPT < 9 U/L (7.0-40); AST/SGOT 18 U/L (<34); CALCIUM LEVEL 9.1 MG/DL (8.3-10.6); CARBON DIOXIDE LEVEL 28 MMOL/L (20-31); CHLORIDE LEVEL 105 MMOL/L (98-107); CREATININE FOR GFR 0.71 MG/DL (0.55-1.30); GLOMERULAR FILTRATION RATE > 90.0 (>39); POTASSIUM SERUM 3.8 MMOL/L (3.5-5.1); SODIUM LEVEL 143 MMOL/L (136-145)
[2025-07-04] MEDS ORDERED: ISOVUE-370 76% 100 ML VIAL As Ordered ONE (04:09)
[2025-07-04 06:15] VITALS: O2SAT 96
[2025-07-04] MEDS: ONDANSETRON 4MG 2ML VIAL IV ONE (06:31)
== END 2025-07-04 06:58 | disposition home or self-care (01) ==
LOC: M ED 00:43
DX: K59.00 Constipation, unspecified (principal); R10.9 Unspecified abdominal pain; E11.9 Type 2 diabetes mellitus without complications; C50.912 Malignant neoplasm of unspecified site of left female breast; Z88.2 Allergy status to sulfonamides; Z88.1 Allergy status to other antibiotic agents; Z88.6 Allergy status to analgesic agent; Z88.8 Allergy status to other drugs, medicaments and biological substances; Z79.1 Long term (current) use of non-steroidal anti-inflammatories (NSAID); Z79.2 Long term (current) use of antibiotics; Z79.899 Other long term (current) drug therapy
CPT/HCPCS: 36415; 74018; 74177; 80048; 80076; 83605; 83690; 85025; 85610; 85730; 86850; 86900; 86901; 93041; 99285; Q9967

== ENCOUNTER 2025-07-16 18:00 | Emergency (ER) | payer MEDICARE, MEDICAID ==
[~2025-07-16] VITALS: Ht 152.4 cm; Wt 72.7 kg
[2025-07-16 21:44] VITALS: BP 165/77; TEMP 98.4
[2025-07-16] MEDS: LIDOCAINE 5% OINT 30 GM TUBE TOP STA (21:44)
[2025-07-16] MEDS: ACETAMINOPHEN 325 MG TAB PO ONE (21:44)
[2025-07-16] MEDS: ONDANSETRON 4MG ORAL DISINTEGRATING TAB PO ONE (22:26)
[2025-07-16] MEDS ORDERED: OXYC-517 PO (22:33)
[2025-07-16 22:34] VITALS: O2SAT 97
[2025-07-17] MEDS ORDERED: LIDOCAINE 5% OINT 30 GM TUBE TOP SCH (09:00)
== END 2025-07-16 22:58 | disposition home or self-care (01) ==
LOC: EDBD 18:00 → M ED 18:00
DX: M17.11 Unilateral primary osteoarthritis, right knee (principal); E11.9 Type 2 diabetes mellitus without complications; I10 Essential (primary) hypertension; F41.9 Anxiety disorder, unspecified; F32.A Depression, unspecified; Z88.2 Allergy status to sulfonamides; Z88.1 Allergy status to other antibiotic agents; Z88.5 Allergy status to narcotic agent; Z88.6 Allergy status to analgesic agent; Z88.8 Allergy status to other drugs, medicaments and biological substances; Z79.1 Long term (current) use of non-steroidal anti-inflammatories (NSAID); Z79.2 Long term (current) use of antibiotics; Z79.899 Other long term (current) drug therapy

== ENCOUNTER → 2025-07-31 | Outpatient (CLI) | payer MEDICARE, MEDICAID ==
[~2025-07-31] MED LIST changes: +DOCU100C16 PO; +HYDR-643 PO; +OXYC-517 PO
[2025-07-31 12:27] LABS: ESTIMATED AVERAGE GLUCOSE 171.0 MG/DL (60-110)
[2025-07-31 12:34] LABS: CALCIUM LEVEL 9.4 MG/DL (8.3-10.6); CARBON DIOXIDE LEVEL 31 MMOL/L (20-31); CHLORIDE LEVEL 101 MMOL/L (98-107); CREATININE FOR GFR 0.71 MG/DL (0.55-1.30); GLOMERULAR FILTRATION RATE > 90.0 (>39); POTASSIUM SERUM 4.7 MMOL/L (3.5-5.1); SODIUM LEVEL 141 MMOL/L (136-145)
== END ==
LOC: M RAD 10:38
PROVIDERS: ATTEND Nurse Practitioner Family
DX: Z01.818 Encounter for other preprocedural examination (principal); E11.69 Type 2 diabetes mellitus with other specified complication; Z79.4 Long term (current) use of insulin

== ENCOUNTER 2025-08-19 08:52 | Day surgery (SDC) | payer MEDICAID, MEDICARE ==
[~2025-08-19] VITALS: Ht 152.4 cm; Wt 73.0 kg
[2025-08-19] MEDS ORDERED: LR 1,000 ML IV SCH (10:00)
[2025-08-19] MEDS ORDERED: DEXTROSE 50% 50 ML SYRINGE IV PRN ×2 (10:20→12:25)
[2025-08-19] MEDS ORDERED: GLUCOSE 4 GM CHEW PO PRN ×2 (10:20→12:25)
[2025-08-19] MEDS ORDERED: GLUCAGON INJ 1 MG VIAL SC PRN ×2 (10:20→12:25)
[2025-08-19] MEDS ORDERED: LANTINJ4 SC (10:23)
[2025-08-19] MEDS ORDERED: ACET-645 PO (10:23)
[2025-08-19] MEDS ORDERED: RAME8TAB2 PO (10:23)
[2025-08-19] MEDS ORDERED: LIDOCAINE 2% 100 MG/5 ML SDV (FOR ANES.) As Ordered ONE (10:24)
[2025-08-19] MEDS ORDERED: ONDANSETRON 4MG 2ML VIAL As Ordered ONE (10:24)
[2025-08-19] MEDS ORDERED: dexAMETHasone 4 MG/ML 1 ML VIAL As Ordered ONE (10:24)
[2025-08-19] MEDS ORDERED: MIDAZOLAM INJ 2 MG/2 ML VIAL As Ordered ONE (10:47)
[2025-08-19] MEDS: INSULIN LISPRO (NovoLOG) PER UNIT SC PRN ×3 (11:00→13:47)
[2025-08-19] MEDS: ceFAZolin SOD 2 GM IV ONCE IV ONE (11:32)
[2025-08-19] MEDS: LIDOCAINE W/EPINEPHrine 1% 20 ML VIAL As Ordered ONE (12:05)
[2025-08-19] MEDS ORDERED: KETOROLAC 30 MG/ML 1 ML VIAL As Ordered ONE (12:07)
[2025-08-19] MEDS ORDERED: ONDANSETRON 4MG 2ML VIAL IV PRN (12:25)
[2025-08-19] MEDS: LABETALOL 100 MG/20 ML VIAL IV PRN (12:28)
[2025-08-19 12:43] VITALS: BP 210/93
[2025-08-19 14:02] VITALS: BP 165/73; TEMP 97; O2SAT 96
== END 2025-08-19 14:40 | disposition home or self-care (01) ==
LOC: M SDC 08:52
PROVIDERS: ATTEND Orthopaedic Surgery Hand Surgery
DX: G56.01 Carpal tunnel syndrome, right upper limb (principal); G56.21 Lesion of ulnar nerve, right upper limb; E11.43 Type 2 diabetes mellitus with diabetic autonomic (poly)neuropathy; I10 Essential (primary) hypertension; K31.84 Gastroparesis; G40.909 Epilepsy, unspecified, not intractable, without status epilepticus; E78.00 Pure hypercholesterolemia, unspecified; G47.30 Sleep apnea, unspecified; Z79.899 Other long term (current) drug therapy; Z79.4 Long term (current) use of insulin; Z79.82 Long term (current) use of aspirin; Z85.3 Personal history of malignant neoplasm of breast; Z91.048 Other nonmedicinal substance allergy status; Z88.6 Allergy status to analgesic agent; Z92.3 Personal history of irradiation; Z92.21 Personal history of antineoplastic chemotherapy; Z88.5 Allergy status to narcotic agent; Z88.8 Allergy status to other drugs, medicaments and biological substances; Z88.2 Allergy status to sulfonamides
CPT/HCPCS: 29999; 64721; J0688; J1100; J1815; J1885; J1920; J2250; J2405; J3010

== ENCOUNTER → 2025-08-23 | Outpatient (CLI) | payer MEDICARE, MEDICAID ==
[~2025-08-23] MED LIST changes: +ACET-645 PO; +LANTINJ4 SC; +RAME8TAB2 PO
== END ==
LOC: M WHC 09:07
PROVIDERS: ATTEND Specialist
DX: Z12.31 Encounter for screening mammogram for malignant neoplasm of breast (principal); Z85.3 Personal history of malignant neoplasm of breast; M85.852 Other specified disorders of bone density and structure, left thigh; R92.313 Mammographic fatty tissue density, bilateral breasts

== ENCOUNTER → 2025-08-27 | Outpatient (CLI) | payer MEDICAID, MEDICARE | LOC: M RAD 14:55 | PROVIDERS: ATTEND Nurse Practitioner Family | DX: R41.0 Disorientation, unspecified (principal) ==

== ENCOUNTER → 2025-09-05 | Outpatient (REF) | payer MEDICARE ==
[2025-09-05 14:01] LABS: APPEARANCE, URINE CLEAR (CLEAR); BACTERIA, URINE AUTO NEGATIVE (NEGATIVE); BILIRUBIN, URINE AUTO NEGATIVE (NEGATIVE); BLOOD, URINE BLOOD NEGATIVE (NEGATIVE); GLUCOSE, URINE (UA) AUTO 3+ mg/dL (NEGATIVE); KETONE, URINE AUTO TRACE mg/dL (NEGATIVE); LEUKOCYTE ESTERASE, URINE AUTO NEGATIVE (NEGATIVE); NITRITE, URINE AUTO NEGATIVE (NEGATIVE); PROTEIN, URINE AUTO NEGATIVE (NEGATIVE); RBC, URINE AUTO 0 /HPF (0-3); SPECIFIC GRAVITY URINE AUTO 1.029 (1.002-1.035); SQUAMOUS EPITHELIAL CELL UR AU 0 /HPF (0-6); UROBILINOGEN, URINE AUTO 0.2 mg/dL (0.0-2.0); WBC, URINE AUTO 0 /HPF (0-3)
== END ==
LOC: M SMT 12:53
PROVIDERS: ATTEND Urology
DX: R32 Unspecified urinary incontinence (principal)

== ENCOUNTER → 2025-09-11 | Outpatient (CLI) | payer MEDICARE, MEDICAID | LOC: M PLAIMG 14:30 | PROVIDERS: ATTEND Physician Assistant | DX: R94.31 Abnormal electrocardiogram [ECG] [EKG] (principal); I08.0 Rheumatic disorders of both mitral and aortic valves ==

== ENCOUNTER → 2025-09-20 | Outpatient (CLI) | payer MEDICARE, MEDICAID | LOC: M RAD 09:11 | PROVIDERS: ATTEND Orthopaedic Surgery | DX: M17.11 Unilateral primary osteoarthritis, right knee (principal); S83.281A Other tear of lateral meniscus, current injury, right knee, initial encounter; S83.241A Other tear of medial meniscus, current injury, right knee, initial encounter; M94.261 Chondromalacia, right knee; M76.51 Patellar tendinitis, right knee; M23.41 Loose body in knee, right knee ==

== ENCOUNTER → 2025-10-31 | Outpatient (CLI) | payer MEDICARE, MEDICAID | LOC: M RAD 13:31 | PROVIDERS: ATTEND Psychiatry & Neurology Neurology | DX: M50.121 Cervical disc disorder at C4-C5 level with radiculopathy (principal); M50.123 Cervical disc disorder at C6-C7 level with radiculopathy; R20.2 Paresthesia of skin; R53.1 Weakness; M47.812 Spondylosis without myelopathy or radiculopathy, cervical region; M48.02 Spinal stenosis, cervical region ==